=== PATIENT | female | born 1975 | race Caucasian/White ===

== ENCOUNTER 2017-05-26 13:45 | Emergency (ER) | payer OTHER ==
[~2017-05-26] VITALS: Ht 157.5 cm; Wt 62.5 kg
[~2017-05-26 13:45] MED LIST: IBUP-1542 PO; PREN1TAB49 PO
[2017-05-26 13:48] VITALS: Ht 157.5 cm; Wt 62.5 kg
[2017-05-26] MEDS ORDERED: SOD CHLORIDE 0.9% 500 ML IV ONE (16:00)
[2017-05-26] MEDS ORDERED: METOCLOPRAMIDE 10 MG INJ IV ONE (16:00)
[2017-05-26] MEDS ORDERED: DIPHENHYDRAMINE 50 MG INJ IV ONE (16:00)
[2017-05-26] MEDS ORDERED: NAPR-688 PO (16:45)
[2017-05-26] MEDS ORDERED: ORPH100T PO (16:45)
--- NOTE | 2017-05-26 16:56 | ERD ---
ER Documentation Chief Complaint Date/Time DATE: 05/26/17 TIME: 16:47 Chief Complaint Complains of a headache x 7 days HPI .. This 42-year-old female presents with a headache times a week. Headache started gradually in the back of her neck and now encompasses part of her head as well as around the eyes. She had no trauma to the area. She does get headaches from time to time that usually resolve with ibuprofen or and Tylenol. She had nausea yesterday but does not today. She also had some facial tingling. No neurological deficits otherwise. No focal weakness. This is not the worst headache of her life. ROS All systems reviewed and are negative except as per history of present illness. Medications Home Meds Active Scripts Naproxen* (Naproxen*) 500 Mg Tablet, 500 MG PO BID Y for PAIN, #20 TAB Prov:JANUARY PALACIO 05/26/17 Orphenadrine Citrate (Norflex) 100 Mg Tablet.sa, 100 MG PO BID, #20 TAB.SA Prov:HAKEEMJANUARY 05/26/17 Ibuprofen* (Motrin*) 600 Mg Tab, 600 MG PO Q6, #30 TAB Prov:GHANSHYAM MARTIN PA-C 04/27/16 Reported Medications Vits W-Ca,Fe,Fa(<1MG) () 1 Tab Tablet, 1 TAB PO 06/20/12 Allergies Allergies: Coded Allergies: No Known Allergies (Verified Allergy, 06/20/12) PMhx/Soc History of Surgery: No Anesthesia Reaction: No Hx Neurological Disorder: No Hx Respiratory Disorders: No Hx Cardiac Disorders: No Hx Psychiatric Problems: No Hx Miscellaneous Medical Probl: No Hx Alcohol Use: No Hx Substance Use: No Hx Tobacco Use: No Physical Exam Vitals Vital Signs Date Time Temp Pulse Resp B/P Pulse Ox O2 Delivery O2 Flow Rate FiO2 05/26/17 13:48 98.9 79 20 135/79 98 Physical Exam Const: [] Mild distress Head: Atraumatic Eyes: Normal Conjunctiva, EOMI, PERRLA ENT: Normal External Ears, Nose and Mouth. Neck: Full range of motion..Bilateral upper trapezius and paraspinal muscle spasm. Skin: No petechiae or rashes Ext: No cyanosis, or edema Neur: Awake and alert and ) x 3, CN II-12 Psych: Normal Mood and Affect Results 24 hrs Current Medications Medications (Trade) Dose Ordered Sig/Jalyn Route PRN Reason Start Time Stop Time Status Last Admin Dose Admin Sodium Chloride (NS) 500 ml @ 500 mls/hr Q1H ONCE IV 05/26/17 16:00 05/26/17 16:59 05/26/17 16:06 Metoclopramide HCl (Reglan) 10 mg ONCE ONCE IV 05/26/17 16:00 05/26/17 16:01 DC 05/26/17 16:06 Diphenhydramine HCl (Benadryl) 12.5 mg ONCE ONCE IV 05/26/17 16:00 05/26/17 16:01 DC 05/26/17 16:06 Procedures/MDM Acute headache that has features of a tension headache.. No neurological deficits currently. She was given a headache cocktail of 12.5 mg IV Benadryl, 10 mg of Reglan, 500 cc of IV fluid. This eliminated her headache. Admit to discharge with naproxen and Norflex for the muscle spasm in her neck. Return precautions given as well have low suspicion for subarachnoid hemorrhage because of the character of the headache and is gradual onset. PCP follow-up recommended. Departure Diagnosis: Primary Impression: Acute head injury Additional Impression: Neck muscle spasm Condition: Stable Patient Instructions: What Are Migraine and Tension Headaches? Referrals: COMM[facility]ITY CLINICS YOU HAVE RECEIVED A MEDICAL SCREENING EXAM AND THE RESULTS INDICATE THAT YOU DO NOT HAVE A CONDITION THAT REQUIRES URGENT TREATMENT IN THE EMERGENCY DEPARTMENT. FURTHER EVALUATION AND TREATMENT OF YOUR CONDITION CAN WAIT UNTIL YOU ARE SEEN IN YOUR DOCTORS OFFICE WITHIN THE NEXT 1-2 DAYS. IT IS YOUR RESPONSIBILITY TO MAKE AN APPOINTMENT FOR FOLOW-UP CARE. IF YOU HAVE A PRIMARY DOCTOR --you should call your primary doctor and schedule an appointment IF YOU DO NOT HAVE A PRIMARY DOCTOR YOU CAN CALL OUR PHYSICIAN REFERRAL HOTLINE AT IF YOU CAN NOT AFFORD TO SEE A PHYSICIAN YOU CAN CHOSE FROM THE FOLLOWING [facility] CLINICS [facility] [address] [facility] [address] [facility] [address] [facility] [address] [facility] [address] [facility]. [facility] [address] Additional Instructions: Llame al doctor MAANA y enrique diya ROCKY PARA DENTRO DE 2-3 CANDELARIA.Dgale a la secretaria que nosotros le instruimos hacer esta rocky.Avise o llame si taylor condicin se empeora antes de la rocky. Regresa aqui si peor o no mejor. JANUARY PALACIO DO May 26, 2017 16:56
== END 2017-05-26 17:15 | disposition home or self-care (01) ==
LOC: FTE 13:45
DX: S09.90XA Unspecified injury of head, initial encounter (principal); M62.838 Other muscle spasm; X58.XXXA Exposure to other specified factors, initial encounter; Y92.9 Unspecified place or not applicable
CPT/HCPCS: 96374; 96375; J1200; J2765; J7040; Z7502

== ENCOUNTER 2019-04-21 22:08 | Inpatient (IN) | payer OTHER ==
[~2019-04-21] VITALS: Ht 157.5 cm; Wt 63.1 kg
[~2019-04-21 22:08] MED LIST changes: +AMOX500C2 PO; -IBUP-1542 PO; -PREN1TAB49 PO; +SACC250C PO; +SULF1TAB31 PO; +TAMS-14 PO; +TRAM50TA2 PO
[2019-04-21] MEDS ORDERED: morphine 4 MG/ML VIAL IV STA (22:35)
[2019-04-21] MEDS ORDERED: ONDANSETRON 4 MG INJ IV STA (22:35)
[2019-04-21] MEDS ORDERED: SOD CHLORIDE 0.9% 1,000 ML IV STA (22:35)
[2019-04-21] MEDS ORDERED: KETOROLAC 15 MG INJ IV STA (22:35)
--- NOTE | 2019-04-21 22:45 | ERD ---
ER Documentation Chief Complaint Chief Complaint left flank pain x 1 hour HPI 43-year-old female who presents to the emergency room complaining of persistent left flank and left lower quadrant abdominal pain. Patient was recently ev aluated and admitted for ureterolithiasis. The patient and possible pyelonephritis though her urine culture only grew out strep. The patient noted interval mild improvement but today has worsening severe 8 out of 10 pain to the left flank and left lower quadrant. She denies any fevers or chills dysuria urgency or frequency. She does describe some mild nausea with the pain. ROS All systems reviewed and are negative except as per history of present illness. Medications Home Meds Active Scripts Amoxicillin* (Amoxicillin*) 500 Mg Cap, 500 MG PO Q8 for 7 Days, #21 CAP Prov:RUTH GONCALVES MD 04/16/19 Allergies Allergies: Coded Allergies: No Known Allergies (Verified Allergy, Unknown, 04/14/19) PMhx/Soc History of Surgery: Yes (Breast implants, tummy tuck, hernia repair) Anesthesia Reaction: No Hx Neurological Disorder: No Hx Respiratory Disorders: No Hx Cardiac Disorders: No Hx Psychiatric Problems: No Hx Miscellaneous Medical Probl: Yes (tummy tuck, hernia repair) Hx Alcohol Use: No Hx Substance Use: No Hx Tobacco Use: No Smoking Status: Never smoker FmHx Family History: No diabetes Physical Exam Vitals Vital Signs Date Temp Pulse Resp B/P (MAP) Pulse Ox O2 O2 Flow FiO2 Time Delivery Rate 04/22/19 63 15 117/68 100 Room Air 00:00 (84) 04/21/19 63 14 112/69 99 Room Air 23:30 (83) 04/21/19 60 15 128/79 100 Room Air 23:00 (95) 04/21/19 97.3 20 138/74 100 22:56 (95) 04/21/19 97.3 72 20 138/74 100 22:11 (95) Physical Exam General: Slightly uncomfortable Head: Normocephalic, atraumatic. Eyes: Pupils equally reactive, EOM intact ENT: Moist mucous membranes Neck: Supple, no lymphadenopathy Respiratory: Lungs clear bilaterally, no distress Cardiovascular: RRR, no murmurs, rubs, or gallops Abdominal: Soft, non-tender, non-distended, no peritoneal signs Back: No CVAT bilaterally : Deferred MSK: No edema, no unilateral swelling, 5/5 strength Neurologic: Alert and oriented, moving all extremities, normal speech, no focal weakness, no cerebellar signs Skin: No rash Psych: Normal mood Result Diagram: 04/21/19224304/21/192243 Results 24 hrs Laboratory Tests Test 04/21/19 22:44 04/21/19 22:50 04/21/19 22:58 White Blood Count 8.3 10^3/ul Red Blood Count 4.19 10^6/ul Hemoglobin 11.6 g/dl Hematocrit 35.9 % Mean Corpuscular Volume 85.7 fl Mean Corpuscular Hemoglobin 27.7 pg Mean Corpuscular 32.3 g/dl Hemoglobin Concent Red Cell Distribution Width 15.0 % Platelet Count 215 10^3/UL Mean Platelet Volume 9.6 fl Immature Granulocytes % 0.400 % Neutrophils % 54.0 % Lymphocytes % 35.5 % Monocytes % 8.8 % Eosinophils % 1.1 % Basophils % 0.2 % Nucleated Red Blood Cells % 0.0 /100WBC Immature Granulocytes # 0.030 10^3/ul Neutrophils # 4.5 10^3/ul Lymphocytes # 2.9 10^3/ul Monocytes # 0.7 10^3/ul Eosinophils # 0.1 10^3/ul Basophils # 0.0 10^3/ul Nucleated Red Blood Cells # 0.0 10^3/ul Prothrombin Time 13.0 Sec Prothrombin Time Ratio 1.0 INR International 0.97 Normalized Ratio Activated Partial Thromboplast 25.8 Sec Time Sodium Level 137 mmol/L Potassium Level 3.6 mmol/L Chloride Level 102 mmol/L Carbon Dioxide Level 29 mmol/L Anion Gap 6 Blood Urea Nitrogen 16 mg/dl Creatinine 0.63 mg/dl Est Glomerular Filtrat > 60 mL/min Rate mL/min Glucose Level 99 mg/dl Calcium Level 8.9 mg/dl Urine Color YELLOW Urine Clarity CLOUDY Urine pH 6.0 Urine Specific [place] 1.028 Urine Ketones TRACE mg/dL Urine Nitrite NEGATIVE mg/dL Urine Bilirubin NEGATIVE mg/dL Urine Urobilinogen NEGATIVE mg/dL Urine Leukocyte Esterase 1+ Jose/ul Urine Microscopic RBC 1 /HPF Urine Microscopic WBC 6 /HPF Urine Squamous Epithelial Cells MANY /HPF Urine Calcium Oxalate Crystals MANY /HPF Urine Mucus FEW /HPF Urine Hemoglobin NEGATIVE mg/dL Urine Glucose NEGATIVE mg/dL Urine Total Protein 1+ mg/dl POC Beta HCG, Qualitative NEGATIVE Current Medications Medications Dose Sig/Jalyn Start Time Status Last (Trade) Ordered Route PRN Stop Time Admin Dose Reason Admin Sodium 1,000 ml @ Q1H STAT 04/21/19 DC 04/21/19 Chloride 1,000 mls/hr IV 22:35 23:01 04/21/19 23:34 Morphine 4 mg ONCE STAT 04/21/19 DC 04/21/19 Sulfate IV 22:35 23:02 (morphine) 04/21/19 22:36 Ondansetron 4 mg ONCE STAT 04/21/19 DC 04/21/19 HCl (Zofran IV 22:35 23:01 Inj) 04/21/19 22:36 Ketorolac 15 mg ONCE STAT 04/21/19 DC 04/21/19 Tromethamine IV 22:35 23:01 (Toradol) 04/21/19 22:36 Ondansetron 4 mg BRIDGE ORDER 04/22/19 HCl (Zofran PRN IV 00:30 Inj) NAUSEA/VOMITI 04/23/19 00:29 NG 650 mg ER BRIDGE 04/22/19 Acetaminophen PRN PO 00:30 (Tylenol .MILD PAIN 04/23/19 00:29 Tab) 1-3 OR TEMP Amoxicillin 500 mg Q8 PO 04/22/19 06:00 (Amoxicillin) 04/24/19 05:59 Sodium 1,000 ml @ Q8H IV 04/22/19 Chloride 125 mls/hr 00:10 IV Flush 3 ml PER 04/22/19 (NS 3 ml) PROTOCOL IV 00:30 Ondansetron 4 mg Q6H PRN 04/22/19 HCl (Zofran IV 00:30 Inj) NAUSEA/VOMITI NG 650 mg Q6H PRN 04/22/19 Acetaminophen PO .PAIN 1-3 00:30 (Tylenol OR TEMP Tab) 0.5 mg Q4H PRN 04/22/19 Hydromorphone IV .SEVERE 00:30 HCl PAIN 7-10 (Dilaudid) Docusate 100 mg Q12H PRN 04/22/19 Sodium PO 00:30 (Colace) .CONSTIPATION Bisacodyl 5 mg DAILY PRN 04/22/19 (Dulcolax) PO 00:30 .CONSTIPATION Ceftriaxone 50 ml @ Q24H IVPB 04/22/19 Sodium 100 mls/hr 00:30 Procedures/MDM EKG, MONITORS, & DIAGNOSTIC IMAGING: X-ray abdomen: No acute process per radiologist read LAB INTERPRETATION: I reviewed the laboratory testing and it shows [no evidence of acute process] MEDICAL DECISION MAKING: The patient presents with persistent pain secondary to ureteral colic. It appears the patient's stone was only 3 mm however the patient has failure to pass with trial of passage as an outpatient. Do not believe the patient has an infected stone, most recent urine culture is negative. I discussed the case with Dr. Alexis, the patient's urologist who recommends admission for further evaluation, pain control and possible stent and retrieval. Patient will be n.p.o. at midnight. ER COURSE: * Patient treated with IV fluids pain medications and Toradol. * KUB ordered * Pain improving CONSULTATION: Dr. Alexis, urology contacted via [employer] around 11 PM DISPOSITION PLAN: Accepting care team and consultations: I discussed the current laboratory data, diagnostic imaging and emergency care provided. Admitting team: Dr. Montiel Admitting team indication: Insurance directed Departure Diagnosis: Primary Impression: Ureteral colic Condition: Stable TRAVON PEARSON MD Apr 21, 2019 22:45
[2019-04-22] MEDS: SOD CHLORIDE 0.9% 1,000 ML IV SCH ×4 (00:19→18:15)
[2019-04-22] MEDS: CEFTRIAXONE 1 GM/50 ML (PMX) 50 ML IVPB SCH (00:20)
[2019-04-22] MEDS ORDERED: DOCUSATE SODIUM 100 MG CAP PO PRN (00:30)
[2019-04-22] MEDS ORDERED: NACL 0.9% 3 ML SYG IV SCH (00:30)
[2019-04-22] MEDS ORDERED: ACETAMINOPHEN 325 MG TAB PO PRN ×2 (00:30)
[2019-04-22] MEDS ORDERED: ONDANSETRON 4 MG INJ IV PRN ×2 (00:30)
[2019-04-22] MEDS ORDERED: BISACODYL (EC) 5 MG TAB PO PRN (00:30)
[2019-04-22] MEDS ORDERED: HYDROmorphONE 0.5 MG/0.5 ML SYG IV PRN (00:30)
[2019-04-22 01:15] VITALS: BP 119/67; PULSE 64; RESP 16
[2019-04-22 02:08] VITALS: Ht 157.5 cm; Wt 63.1 kg
--- NOTE | 2019-04-22 03:12 | HP ---
Date/Time of Note Date/Time of Note DATE: 04/22/19 TIME: 03:04 Assessment/Plan VTE Prophylaxis SCD applied (from Nsg): Yes Pharmacological prophylaxis: NA/contraindicated Pharm contraindication: low risk/ambulating Lines/Catheters IV Catheter Type (from Nrsg): Peripheral IV Urinary Cath still in place: No Assessment/Plan Hospital Course This is a 42-year-old female being admitted to the [facility] floor for: #1 left flank pain: Possibly secondary to left-sided kidney stone. Previous CT showed a 3 mm stone in the left ureter. KUB done in the emergency department this visit did not show any evidence of stone. Nonetheless given her pain we will treat her for possible nephrolithiasis. Aggressive IV fluid hydration with normal saline. Pain management. Flomax. Strain the urine urology has already been consulted by the emergency department. #2 urinary tract infection: Ceftriaxone 1 g every 24 hours, patient had a previous urine culture positive for strep B. She was discharged on amoxicillin, will hold this at the current time given that she is on ceftriaxone. She had approximately 2 more days left on her amoxicillin course. #3 DVT GI prophylaxis: SCDs, no GI prophylaxis indicated Result Diagram: 04/21/19224304/21/194 Results 24hrs Laboratory Tests Test 04/21/19 22:44 04/21/19 22:50 04/21/19 22:58 White Blood Count 8.3 # Red Blood Count 4.19 L Hemoglobin 11.6 L Hematocrit 35.9 L Mean Corpuscular Volume 85.7 Mean Corpuscular Hemoglobin 27.7 L Mean Corpuscular Hemoglobin Concent 32.3 Red Cell Distribution Width 15.0 H Platelet Count 215 Mean Platelet Volume 9.6 Immature Granulocytes % 0.400 Neutrophils % 54.0 Lymphocytes % 35.5 Monocytes % 8.8 Eosinophils % 1.1 Basophils % 0.2 Nucleated Red Blood Cells % 0.0 Immature Granulocytes # 0.030 Neutrophils # 4.5 Lymphocytes # 2.9 Monocytes # 0.7 Eosinophils # 0.1 Basophils # 0.0 Nucleated Red Blood Cells # 0.0 Prothrombin Time 13.0 Prothrombin Time Ratio 1.0 INR International Normalized Ratio 0.97 Activated Partial Thromboplast Time 25.8 Sodium Level 137 Potassium Level 3.6 Chloride Level 102 Carbon Dioxide Level 29 Anion Gap 6 Blood Urea Nitrogen 16 Creatinine 0.63 Est Glomerular Filtrat Rate mL/min > 60 Glucose Level 99 Calcium Level 8.9 Urine Color YELLOW Urine Clarity CLOUDY A Urine pH 6.0 Urine Specific [place] 1.028 Urine Ketones TRACE A Urine Nitrite NEGATIVE Urine Bilirubin NEGATIVE Urine Urobilinogen NEGATIVE Urine Leukocyte Esterase 1+ H Urine Microscopic RBC 1 Urine Microscopic WBC 6 H Urine Squamous Epithelial Cells MANY A Urine Calcium Oxalate Crystals MANY A Urine Mucus FEW A Urine Hemoglobin NEGATIVE Urine Glucose NEGATIVE Urine Total Protein 1+ H POC Beta HCG, Qualitative NEGATIVE HPI/ROS Admit Date/Time Admit Date/Time Apr 22, 2019 at 00:08 Hx of Present Illness Complaint: Left flank pain this is a 43-year-old female who presents to the emergency room complaining of persistent left lower abdominal quadrant pain radiating to the flank. Patient was recently evaluated and admitted for ureterolithiasis. Patient also recently had a urine culture that was grew out strep agalactiae and she was given a course of amoxicillin. The patient noted interval mild improvement but today has worsening severe 8 out of 10 pain to the left flank and left lower quadrant. She denies any fevers or chills dysuria urgency or frequency. She does describe some mild nausea with the pain. Allergies: NKDA Medications: Amoxicillin 500 mg p.o. every 8 hours ROS Const: As per HPI Eyes : No pain discharge or redness or change in visual acuity ENT: No pain, sore throat, congestion, congestion, dysphagia or discharge Respiratory: No shortness of breath, cough, sputum, wheezing, or pleuritic pain Cardiovascular: No chest pain, palpitation, PND, or edema GI : no change in appetite, abdominal pain, nausea, vomiting, diarrhea, constipation, or change in the color his stool Genitourinary: As per HPI Musculoskeletal: No joint pain, back pain, neck pain, restricted range of motion in neck or joints Skin: No rash, bruising or hives Neuro: No headache, dizziness, syncope, seizure, focal weakness Endocrine: No polyuria, polydipsia, temperature intolerance Psych: No hallucination, depression, anxiety or suicidal ideation PMH/Family/Social Past Medical History Nephrolithiasis Medications Current Medications Ondansetron HCl (Zofran Inj) 4 mg BRIDGE ORDER PRN IV NAUSEA/VOMITING; Start 04/22/19 at 00:30; Stop 04/23/19 at 00:29 Acetaminophen (Tylenol Tab) 650 mg ER BRIDGE PRN PO .MILD PAIN 1-3 OR TEMP; Start 04/22/19 at 00:30; Stop 04/23/19 at 00:29 Amoxicillin (Amoxicillin) 500 mg Q8 PO ; Start 04/22/19 at 06:00; Stop 04/24/19 at 05:59 Sodium Chloride 1,000 ml @ 125 mls/hr Q8H IV Last administered on 04/22/19at 00:19; Admin Dose 125 MLS/HR; Start 04/22/19 at 00:10 IV Flush (NS 3 ml) 3 ml PER PROTOCOL IV ; Start 04/22/19 at 00:30 Ondansetron HCl (Zofran Inj) 4 mg Q6H PRN IV NAUSEA/VOMITING; Start 04/22/19 at 00:30 Acetaminophen (Tylenol Tab) 650 mg Q6H PRN PO .PAIN 1-3 OR TEMP; Start 04/22/19 at 00:30 Hydromorphone HCl (Dilaudid) 0.5 mg Q4H PRN IV .SEVERE PAIN 7-10; Start 04/22/19 at 00:30 Docusate Sodium (Colace) 100 mg Q12H PRN PO .CONSTIPATION; Start 04/22/19 at 00:30 Bisacodyl (Dulcolax) 5 mg DAILY PRN PO .CONSTIPATION; Start 04/22/19 at 00:30 Ceftriaxone Sodium 50 ml @ 100 mls/hr Q24H IVPB Last administered on 04/22/19at 00:20; Admin Dose 100 MLS/HR; Start 04/22/19 at 00:30 Coded Allergies: No Known Allergies (Verified Allergy, Unknown, 04/14/19) Past Surgical History Tummy tuck, hernia repair Past Surgical Hx: other Family History Significant Family History: no pertinent family hx Social History Alcohol Use: none Smoking Status: Never smoker Drug Use: none Exam/Review of Systems Vital Signs Vitals Vital Signs Date Temp Pulse Resp B/P (MAP) Pulse Ox O2 O2 Flow FiO2 Time Delivery Rate 04/22/19 97.6 64 16 119/67 99 Room Air 01:15 (84) Intake and Output 04/21/19 04/21/19 04/22/19 1515:00 23:00 07:00 IntakeIntake Total 1000 ml BalanceBalance 1000 ml Exam Exam General: Currently lying in bed in no acute distress HEENT: Atraumatic, normocephalic. The pupils are equal, round and reactive. Extraocular motor are intact Neck: Supple with full range of motion. No rigidity or meningismus Chest: Nontender Lungs: Clear to auscultation bilaterally no crackles rales or wheezing Heart: Normal S1-S2, Regular rhythm and rate. No murmur, S3, or S4 Abdomen: Soft mild tenderness palpation over the left flank/lower abdominal quadrant, no CVA tenderness to palpation. Normal bowel sounds. Extremities: Normal to inspection, no edema no cyanosis Neurologic: Normal mental status, speech normal, cranial nerves II through XII are intact, motor and sensory are intact, no focal weakness Additional Comments PROCEDURE: XR Abdomen. CLINICAL INDICATION: Abdominal pain. TECHNIQUE: An AP supine abdominal x-ray was obtained. . COMPARISON: ABDOMEN 04/15/2019 FINDINGS: The bowel gas pattern is normal. The fecal burden is within normal limits. There are no visible masses or abnormal calcifications. There is no gross evidence of free intraperitoneal air. There are no air-fluid levels. The osseus structures are unremarkable. IMPRESSION: 1. Unremarkable abdomen radiograph. RPTAT:AAJJ Physician Abram Date Time Electronically viewed and signed by Physician Abram on 04/21/2019 23:24 GW/ CC: TRAVON PEARSON MD [id number] PROCEDURE: CT Abdomen and Pelvis without contrast. CLINICAL INDICATION: Abdominal and pelvic pain. TECHNIQUE: CT scan of the abdomen and pelvis without contrast was performed. Coronal and sagittal reformatted images were obtained from the axial source images. Images were reviewed on a high-resolution PACS workstation. Total exam DLP is 493 mGy-cm. CTDIvol is 8 mGy. One or more of the following dose reduction techniques were used: Automated exposure control, adjustment of the mA and/or kV according to patient size, use of iterative reconstruction technique. DICOM images are available. COMPARISON: None. FINDINGS: There is bilateral lung base atelectasis versus scarring. There is no pleural effusion. There are bilateral breast prosthesis in place. The liver is normal in size and attenuation. There is no focal hepatic lesion. The gallbladder and bile ducts are normal. The spleen is normal in size. There is no focal splenic lesion. Both adrenals are normal with no enlargement or mass. The pancreas is unremarkable with no mass or evidence of pancreatitis. There is no renal mass or hydronephrosis. There is a 3 mm calcification within the proximal left ureter. The proximal left ureter is dilated measuring up to 1.8 cm with associated surrounding fat stranding. The abdominal aorta is not dilated. There is no retroperitoneal lymphadenopathy or mass. There is a 2.9 cm well circumscribed fatty lesion with associated internal soft tissue attenuation within the right lower quadrant. The bladder and distal ureters are normal. The periappendiceal region is unremarkable with no evidence of appendicitis. The bowel and mesentery are normal. There is no free fluid or free gas. There are mild degenerative changes of the spine. IMPRESSION: 1. There is a 3 mm calcification within the proximal left ureter. The proximal left ureter is dilated measuring up to 1.8 cm with associated surrounding periuretral fat stranding. 2. 2.9 cm well circumscribed fatty lesion with associated internal soft tissue attenuation within the right lower quadrant. Follow-up to exclude lipoma versus liposarcoma. RPTAT: QQ Physician Collin Date Time Electronically viewed and signed by Physician Collin on 04/14/2019 12:02 RD/ CC: LEYLA BLEVINS MD [id number] DUANE DILLARD Apr 22, 2019 03:12
[2019-04-22] MEDS ORDERED: AMOXICILLIN 500 MG CAP PO SCH (06:00)
[2019-04-22 07:15] VITALS: BP 113/68; PULSE 72; RESP 19
[2019-04-22] MEDS: TAMSULOSIN (SR) 0.4 MG CAP PO SCH ×2 (09:07→20:46)
--- NOTE | 2019-04-22 12:55 | PN ---
Date/Time of Note Date/Time of Note DATE: 04/22/19 TIME: 12:53 Assessment/Plan VTE Prophylaxis Risk score (from Nsg)>0 risk: 3 SCD applied (from Nsg): Yes Pharmacological prophylaxis: NA/contraindicated Pharm contraindication: low risk/ambulating Lines/Catheters IV Catheter Type (from Nrsg): Peripheral IV Urinary Cath still in place: No Assessment/Plan Hospital Course Assessment and plan #Left flank pain. Suspect secondary to renal stone Previous CT scan showed 3 mm stone in the left ureter KUB done at [facility] showed no evidence of stone Continue IV hydration Continues analgesics On Flomax Urologist evaluation to follow #Suspect UTI. Previous urine culture was positive for strep B Patient was previous he reported discharged on amoxicillin prior to admission and reportedly needed 2 more days to finish regimen Follow-up on urine culture Continue antibiotics for now Disposition and plan. Appears to be improving. Continue with IV fluids and analgesics as needed. Urologist evaluation pending. Discussed POC with Dr. Silva Result Diagram: 04/22/19 0417 04/22/19 0417 Results 24hrs Laboratory Tests Test 04/21/19 22:44 04/21/19 22:50 04/21/19 22:58 04/22/19 04:17 White Blood Count 8.3 # 8.1 Red Blood Count 4.19 L 4.08 L Hemoglobin 11.6 L 11.0 L Hematocrit 35.9 L 35.5 L Mean Corpuscular 85.7 87.0 Volume Mean Corpuscular 27.7 L 27.0 L Hemoglobin Mean Corpuscular 32.3 31.0 L Hemoglobin Concent Red Cell 15.0 H 15.1 H Distribution Width Platelet Count 215 220 Mean Platelet Volume 9.6 10.5 H Immature 0.400 0.200 Granulocytes % Neutrophils % 54.0 65.1 Lymphocytes % 35.5 27.0 Monocytes % 8.8 6.9 Eosinophils % 1.1 0.4 Basophils % 0.2 0.4 Nucleated Red Blood 0.0 0.0 Cells % Immature 0.030 0.020 Granulocytes # Neutrophils # 4.5 5.3 Lymphocytes # 2.9 2.2 Monocytes # 0.7 0.6 Eosinophils # 0.1 0.0 Basophils # 0.0 0.0 Nucleated Red Blood 0.0 0.0 Cells # Prothrombin Time 13.0 Prothrombin Time 1.0 Ratio INR International 0.97 Normalized Ratio Activated 25.8 Partial Thromboplast Time Sodium Level 137 142 Potassium Level 3.6 4.4 Chloride Level 102 109 Carbon Dioxide Level 29 28 Anion Gap 6 5 Blood Urea Nitrogen 16 12 Creatinine 0.63 0.50 Est Glomerular > 60 > 60 Filtrat Rate mL/min Glucose Level 99 106 Calcium Level 8.9 8.2 L Urine Color YELLOW Urine Clarity CLOUDY A Urine pH 6.0 Urine Specific 1.028 [place] Urine Ketones TRACE A Urine Nitrite NEGATIVE Urine Bilirubin NEGATIVE Urine Urobilinogen NEGATIVE Urine Leukocyte 1+ H Esterase Urine Microscopic 1 RBC Urine Microscopic 6 H WBC Urine Squamous MANY A Epithelial Cells Urine Calcium MANY A Oxalate Crystals Urine Mucus FEW A Urine Hemoglobin NEGATIVE Urine Glucose NEGATIVE Urine Total Protein 1+ H POC Beta HCG, NEGATIVE Qualitative Total Bilirubin 0.4 Direct Bilirubin 0.00 Indirect Bilirubin 0.4 Aspartate Amino 20 Transf (AST/SGOT) Alanine 22 Aminotransferase (AL T/SGPT) Alkaline Phosphatase 55 Total Protein 6.2 Albumin 3.3 Globulin 2.90 Albumin/Globulin 1.13 Ratio Subjective 24 Hr Interval Summary Free Text/Dictation Reports left flank pain is getting better. Denies dysuria Exam/Review of Systems Exam Vitals Vital Signs Date Temp Pulse Resp B/P (MAP) Pulse Ox O2 O2 Flow FiO2 Time Delivery Rate 04/22/19 98.2 72 19 113/68 98 07:15 (83) 04/22/19 Room Air 01:15 Intake and Output 04/21/19 04/21/19 04/22/19 1515:00 23:00 07:00 IntakeIntake Total 1675 ml BalanceBalance 1675 ml Constitutional: alert Psych: nl mood/affect Head: normocephalic Eyes: nl conjunctiva Respiratory: clear to auscultation, normal air movement Gastrointestinal: soft; No tender Musculoskeletal: nl extremities to inspection Neurological: SLAG MIXER II-XII intact, nl mental status, nl speech Results Results 24hrs Laboratory Tests Test 04/21/19 22:44 04/21/19 22:50 04/21/19 22:58 04/22/19 04:17 White Blood Count 8.3 # 8.1 Red Blood Count 4.19 L 4.08 L Hemoglobin 11.6 L 11.0 L Hematocrit 35.9 L 35.5 L Mean Corpuscular 85.7 87.0 Volume Mean Corpuscular 27.7 L 27.0 L Hemoglobin Mean Corpuscular 32.3 31.0 L Hemoglobin Concent Red Cell 15.0 H 15.1 H Distribution Width Platelet Count 215 220 Mean Platelet Volume 9.6 10.5 H Immature 0.400 0.200 Granulocytes % Neutrophils % 54.0 65.1 Lymphocytes % 35.5 27.0 Monocytes % 8.8 6.9 Eosinophils % 1.1 0.4 Basophils % 0.2 0.4 Nucleated Red Blood 0.0 0.0 Cells % Immature 0.030 0.020 Granulocytes # Neutrophils # 4.5 5.3 Lymphocytes # 2.9 2.2 Monocytes # 0.7 0.6 Eosinophils # 0.1 0.0 Basophils # 0.0 0.0 Nucleated Red Blood 0.0 0.0 Cells # Prothrombin Time 13.0 Prothrombin Time 1.0 Ratio INR International 0.97 Normalized Ratio Activated 25.8 Partial Thromboplast Time Sodium Level 137 142 Potassium Level 3.6 4.4 Chloride Level 102 109 Carbon Dioxide Level 29 28 Anion Gap 6 5 Blood Urea Nitrogen 16 12 Creatinine 0.63 0.50 Est Glomerular > 60 > 60 Filtrat Rate mL/min Glucose Level 99 106 Calcium Level 8.9 8.2 L Urine Color YELLOW Urine Clarity CLOUDY A Urine pH 6.0 Urine Specific 1.028 [place] Urine Ketones TRACE A Urine Nitrite NEGATIVE Urine Bilirubin NEGATIVE Urine Urobilinogen NEGATIVE Urine Leukocyte 1+ H Esterase Urine Microscopic 1 RBC Urine Microscopic 6 H WBC Urine Squamous MANY A Epithelial Cells Urine Calcium MANY A Oxalate Crystals Urine Mucus FEW A Urine Hemoglobin NEGATIVE Urine Glucose NEGATIVE Urine Total Protein 1+ H POC Beta HCG, NEGATIVE Qualitative Total Bilirubin 0.4 Direct Bilirubin 0.00 Indirect Bilirubin 0.4 Aspartate Amino 20 Transf (AST/SGOT) Alanine 22 Aminotransferase (AL T/SGPT) Alkaline Phosphatase 55 Total Protein 6.2 Albumin 3.3 Globulin 2.90 Albumin/Globulin 1.13 Ratio Medications Medication Current Medications Ondansetron HCl (Zofran Inj) 4 mg BRIDGE ORDER PRN IV NAUSEA/VOMITING; Start 04/22/19 at 00:30; Stop 04/23/19 at 00:29 Acetaminophen (Tylenol Tab) 650 mg ER BRIDGE PRN PO .MILD PAIN 1-3 OR TEMP; Start 04/22/19 at 00:30; Stop 04/23/19 at 00:29 Sodium Chloride 1,000 ml @ 125 mls/hr Q8H IV Last administered on 04/22/19at 10:55; Admin Dose 125 MLS/HR; Start 04/22/19 at 00:10 IV Flush (NS 3 ml) 3 ml PER PROTOCOL IV ; Start 04/22/19 at 00:30 Ondansetron HCl (Zofran Inj) 4 mg Q6H PRN IV NAUSEA/VOMITING; Start 04/22/19 at 00:30 Acetaminophen (Tylenol Tab) 650 mg Q6H PRN PO .PAIN 1-3 OR TEMP; Start 04/22/19 at 00:30 Hydromorphone HCl (Dilaudid) 0.5 mg Q4H PRN IV .SEVERE PAIN 7-10; Start 04/22/19 at 00:30 Docusate Sodium (Colace) 100 mg Q12H PRN PO .CONSTIPATION; Start 04/22/19 at 00:30 Bisacodyl (Dulcolax) 5 mg DAILY PRN PO .CONSTIPATION; Start 04/22/19 at 00:30 Ceftriaxone Sodium 50 ml @ 100 mls/hr Q24H IVPB Last administered on 04/22/19at 00:20; Admin Dose 100 MLS/HR; Start 04/22/19 at 00:30 Tamsulosin HCl (Flomax) 0.4 mg BID PO Last administered on 04/22/19at 09:07; Admin Dose 0.4 MG; Start 04/22/19 at 09:00 KAYA ABAD NP Apr 22, 2019 12:55
--- NOTE | 2019-04-22 13:37 | CONS ---
Assessment/Plan Assessment/Plan Hospital Course (Demo Recall) 43-year-old female known to have a 3 mm stone in the left ureter. She was sent home last week with the hope that she will pass a stone at home. She returned to the emergency room with recurrent left flank pain. She was admitted for pain management. Patient still has pain in the left flank area and left lower quadrant. She does have left lower quadrant pain after she voids. The KUB did not show any radiopaque stone but that does not mean the stone is not there as it may be obs cured by the bowel content. Plan is to continue her pain management, strain the urine and repeated a KUB in a.m. If no pain that requires intravenous pain management then she could go home on oral pain medications and continue to strain her urine at home. I again explained to her that a 3 mm stone she should be able to pass it on her own and that she is not going to pass it without having some pain. Consultation Date/Type/Reason Admit Date/Time Apr 22, 2019 at 00:08 Date of Consultation: Apr 22, 2019 Type of Consult Urology Reason for Consultation Left ureteral stone Requesting Provider: DUANE DILLARD Date/Time of Note DATE: 04/22/19 TIME: 13:24 Hx of Present Illness 43-year-old female known to have a 3 mm stone in the left ureter. She was sent home last week with the hope that she will pass a stone at home. She returned to the emergency room with recurrent left flank pain. She was admitted for pain management. Constitutional: no complaints Eyes: no complaints ENT: no complaints Respiratory: no complaints; No shortness of breath Cardiovascular: no complaints Gastrointestinal: no complaints Genitourinary: flank pain Musculoskeletal: no complaints Skin: no complaints Neurologic: no complaints Endocrine: no complaints Lymphatic: no complaints Psychological: no complaints Immunologic: no complaints Past Medical History Medical History: other Home Meds Active Scripts Amoxicillin* (Amoxicillin*) 500 Mg Cap, 500 MG PO Q8 for 7 Days, #21 CAP Prov:RUTH GONCALVES MD 04/16/19 Medications Current Medications Ondansetron HCl (Zofran Inj) 4 mg BRIDGE ORDER PRN IV NAUSEA/VOMITING; Start 04/22/19 at 00:30; Stop 04/23/19 at 00:29 Acetaminophen (Tylenol Tab) 650 mg ER BRIDGE PRN PO .MILD PAIN 1-3 OR TEMP; Start 04/22/19 at 00:30; Stop 04/23/19 at 00:29 Sodium Chloride 1,000 ml @ 125 mls/hr Q8H IV Last administered on 04/22/19at 10:55; Admin Dose 125 MLS/HR; Start 04/22/19 at 00:10 IV Flush (NS 3 ml) 3 ml PER PROTOCOL IV ; Start 04/22/19 at 00:30 Ondansetron HCl (Zofran Inj) 4 mg Q6H PRN IV NAUSEA/VOMITING; Start 04/22/19 at 00:30 Acetaminophen (Tylenol Tab) 650 mg Q6H PRN PO .PAIN 1-3 OR TEMP; Start 04/22/19 at 00:30 Hydromorphone HCl (Dilaudid) 0.5 mg Q4H PRN IV .SEVERE PAIN 7-10; Start 04/22/19 at 00:30 Docusate Sodium (Colace) 100 mg Q12H PRN PO .CONSTIPATION; Start 04/22/19 at 00:30 Bisacodyl (Dulcolax) 5 mg DAILY PRN PO .CONSTIPATION; Start 04/22/19 at 00:30 Ceftriaxone Sodium 50 ml @ 100 mls/hr Q24H IVPB Last administered on 04/22/19at 00:20; Admin Dose 100 MLS/HR; Start 04/22/19 at 00:30 Tamsulosin HCl (Flomax) 0.4 mg BID PO Last administered on 04/22/19at 09:07; Admin Dose 0.4 MG; Start 04/22/19 at 09:00 Allergies: Coded Allergies: No Known Allergies (Verified Allergy, Unknown, 04/14/19) Past Surgical History Past Surgical Hx: other (Eyelid surgery, bilateral breast implants, tummy tuck and hernia repair) Social History Alcohol Use: none Smoking Status: Never smoker Drug Use: none Exam/Review of Systems Exam Vitals Vital Signs Date Temp Pulse Resp B/P (MAP) Pulse Ox O2 O2 Flow FiO2 Time Delivery Rate 04/22/19 98.2 72 19 113/68 98 07:15 (83) 04/22/19 Room Air 01:15 Intake and Output 04/21/19 04/21/19 04/22/19 1515:00 23:00 07:00 IntakeIntake Total 1675 ml BalanceBalance 1675 ml Constitutional: alert Psych: no complaints Head: normocephalic Eyes: nl conjunctiva Neck: supple Respiratory: normal air movement; No wheezing Cardiovascular: No jugular venous distention (JVD) Gastrointestinal: soft, tender (Left lower quadrant) Genitourinary - Female: CVA tenderness (Left side) Musculoskeletal: nl extremities to inspection Extremities: No calf tenderness Neurological: nl mental status Results Result Diagram: 04/22/1941604/22/19416 Results 24hrs Laboratory Tests Test 04/21/19 22:44 04/21/19 22:50 04/21/19 22:58 04/22/19 04:17 White Blood Count 8.3 # 8.1 Red Blood Count 4.19 L 4.08 L Hemoglobin 11.6 L 11.0 L Hematocrit 35.9 L 35.5 L Mean Corpuscular 85.7 87.0 Volume Mean Corpuscular 27.7 L 27.0 L Hemoglobin Mean Corpuscular 32.3 31.0 L Hemoglobin Concent Red Cell 15.0 H 15.1 H Distribution Width Platelet Count 215 220 Mean Platelet Volume 9.6 10.5 H Immature 0.400 0.200 Granulocytes % Neutrophils % 54.0 65.1 Lymphocytes % 35.5 27.0 Monocytes % 8.8 6.9 Eosinophils % 1.1 0.4 Basophils % 0.2 0.4 Nucleated Red Blood 0.0 0.0 Cells % Immature 0.030 0.020 Granulocytes # Neutrophils # 4.5 5.3 Lymphocytes # 2.9 2.2 Monocytes # 0.7 0.6 Eosinophils # 0.1 0.0 Basophils # 0.0 0.0 Nucleated Red Blood 0.0 0.0 Cells # Prothrombin Time 13.0 Prothrombin Time 1.0 Ratio INR International 0.97 Normalized Ratio Activated 25.8 Partial Thromboplast Time Sodium Level 137 142 Potassium Level 3.6 4.4 Chloride Level 102 109 Carbon Dioxide Level 29 28 Anion Gap 6 5 Blood Urea Nitrogen 16 12 Creatinine 0.63 0.50 Est Glomerular > 60 > 60 Filtrat Rate mL/min Glucose Level 99 106 Calcium Level 8.9 8.2 L Urine Color YELLOW Urine Clarity CLOUDY A Urine pH 6.0 Urine Specific 1.028 [place] Urine Ketones TRACE A Urine Nitrite NEGATIVE Urine Bilirubin NEGATIVE Urine Urobilinogen NEGATIVE Urine Leukocyte 1+ H Esterase Urine Microscopic 1 RBC Urine Microscopic 6 H WBC Urine Squamous MANY A Epithelial Cells Urine Calcium MANY A Oxalate Crystals Urine Mucus FEW A Urine Hemoglobin NEGATIVE Urine Glucose NEGATIVE Urine Total Protein 1+ H POC Beta HCG, NEGATIVE Qualitative Total Bilirubin 0.4 Direct Bilirubin 0.00 Indirect Bilirubin 0.4 Aspartate Amino 20 Transf (AST/SGOT) Alanine 22 Aminotransferase (AL T/SGPT) Alkaline Phosphatase 55 Total Protein 6.2 Albumin 3.3 Globulin 2.90 Albumin/Globulin 1.13 Ratio Medications Medication Current Medications Ondansetron HCl (Zofran Inj) 4 mg BRIDGE ORDER PRN IV NAUSEA/VOMITING; Start 04/22/19 at 00:30; Stop 04/23/19 at 00:29 Acetaminophen (Tylenol Tab) 650 mg ER BRIDGE PRN PO .MILD PAIN 1-3 OR TEMP; Start 04/22/19 at 00:30; Stop 04/23/19 at 00:29 Sodium Chloride 1,000 ml @ 125 mls/hr Q8H IV Last administered on 04/22/19at 10:55; Admin Dose 125 MLS/HR; Start 04/22/19 at 00:10 IV Flush (NS 3 ml) 3 ml PER PROTOCOL IV ; Start 04/22/19 at 00:30 Ondansetron HCl (Zofran Inj) 4 mg Q6H PRN IV NAUSEA/VOMITING; Start 04/22/19 at 00:30 Acetaminophen (Tylenol Tab) 650 mg Q6H PRN PO .PAIN 1-3 OR TEMP; Start 04/22/19 at 00:30 Hydromorphone HCl (Dilaudid) 0.5 mg Q4H PRN IV .SEVERE PAIN 7-10; Start 04/22/19 at 00:30 Docusate Sodium (Colace) 100 mg Q12H PRN PO .CONSTIPATION; Start 04/22/19 at 00:30 Bisacodyl (Dulcolax) 5 mg DAILY PRN PO .CONSTIPATION; Start 04/22/19 at 00:30 Ceftriaxone Sodium 50 ml @ 100 mls/hr Q24H IVPB Last administered on 04/22/19at 00:20; Admin Dose 100 MLS/HR; Start 04/22/19 at 00:30 Tamsulosin HCl (Flomax) 0.4 mg BID PO Last administered on 04/22/19at 09:07; Admin Dose 0.4 MG; Start 04/22/19 at 09:00 PRATIMA COLVIN MD Apr 22, 2019 13:35
[2019-04-22 15:02] VITALS: BP 111/62; PULSE 78; RESP 20
[2019-04-22 20:18] VITALS: BP 116/70; PULSE 54; RESP 16
[2019-04-23] MEDS: CEFTRIAXONE 1 GM/50 ML (PMX) 50 ML IVPB SCH (00:13)
[2019-04-23 02:30] VITALS: BP 109/64; PULSE 61; RESP 18
[2019-04-23] MEDS: SOD CHLORIDE 0.9% 1,000 ML IV SCH (03:11)
[2019-04-23 07:38] VITALS: BP 115/62; PULSE 72; RESP 19
--- NOTE | 2019-04-23 08:35 | CONS ---
Consult Date/Type/Reason Admit Date/Time Apr 22, 2019 at 00:08 Initial Consult Date 04/22/19 Type of Consultation: Urology Reason for Consultation Left ureteral stone Requesting Provider: DUANE DILLARD Date/Time of Note DATE: 04/23/19 TIME: 08:32 Subjective Patient is feeling better. Last time she had pain was over 12 hours earlier. She denies any dysuria. No nausea or vomiting Objective Vitals Vital Signs Date Temp Pulse Resp B/P (MAP) Pulse Ox O2 O2 Flow FiO2 Time Delivery Rate 04/23/19 98.2 72 19 115/62 98 07:38 (79) 04/22/19 Room Air 01:15 Intake and Output 04/22/19 04/22/19 04/23/19 1515:00 23:00 07:00 IntakeIntake Total 325 ml 1620 ml 1500 ml OutputOutput Total 500 ml BalanceBalance 325 ml 1620 ml 1000 ml Exam Abdomen is soft and there is no flank tenderness. Results/Medications Result Diagram: 04/23/19 0444 04/23/19 0444 Results 24 hrs Laboratory Tests Test 04/23/19 04:44 White Blood Count 6.1 # Red Blood Count 3.66 L Hemoglobin 10.1 L Hematocrit 31.9 L Mean Corpuscular Volume 87.2 Mean Corpuscular Hemoglobin 27.6 L Mean Corpuscular Hemoglobin Concent 31.7 L Red Cell Distribution Width 15.1 H Platelet Count 198 Mean Platelet Volume 10.4 Immature Granulocytes % 0.300 Neutrophils % 51.3 Lymphocytes % 39.4 Monocytes % 8.1 Eosinophils % 0.7 Basophils % 0.2 Nucleated Red Blood Cells % 0.0 Immature Granulocytes # 0.020 Neutrophils # 3.1 Lymphocytes # 2.4 Monocytes # 0.5 Eosinophils # 0.0 Basophils # 0.0 Nucleated Red Blood Cells # 0.0 Sodium Level 139 Potassium Level 4.0 Chloride Level 108 Carbon Dioxide Level 27 Anion Gap 4 L Blood Urea Nitrogen 7 Creatinine 0.54 Est Glomerular Filtrat Rate mL/min > 60 Glucose Level 95 Calcium Level 8.1 L Total Bilirubin 0.4 Direct Bilirubin 0.00 Indirect Bilirubin 0.4 Aspartate Amino Transf (AST/SGOT) 15 Alanine Aminotransferase (ALT/SGPT) 29 Alkaline Phosphatase 44 Total Protein 5.6 L Albumin 2.9 L Globulin 2.70 Albumin/Globulin Ratio 1.07 Home Meds Active Scripts Amoxicillin* (Amoxicillin*) 500 Mg Cap, 500 MG PO Q8 for 7 Days, #21 CAP Prov:RUTH GONCALVES MD 04/16/19 Medications Current Medications Sodium Chloride 1,000 ml @ 125 mls/hr Q8H IV Last administered on 04/23/19at 03:11; Admin Dose 125 MLS/HR; Start 04/22/19 at 00:10 IV Flush (NS 3 ml) 3 ml PER PROTOCOL IV ; Start 04/22/19 at 00:30 Ondansetron HCl (Zofran Inj) 4 mg Q6H PRN IV NAUSEA/VOMITING; Start 04/22/19 at 00:30 Acetaminophen (Tylenol Tab) 650 mg Q6H PRN PO .PAIN 1-3 OR TEMP; Start 04/22/19 at 00:30 Hydromorphone HCl (Dilaudid) 0.5 mg Q4H PRN IV .SEVERE PAIN 7-10 Last administered on 04/22/19at 18:15; Admin Dose 0.5 MG; Start 04/22/19 at 00:30 Docusate Sodium (Colace) 100 mg Q12H PRN PO .CONSTIPATION; Start 04/22/19 at 00:30 Bisacodyl (Dulcolax) 5 mg DAILY PRN PO .CONSTIPATION; Start 04/22/19 at 00:30 Ceftriaxone Sodium 50 ml @ 100 mls/hr Q24H IVPB Last administered on 04/23/19at 00:13; Admin Dose 100 MLS/HR; Start 04/22/19 at 00:30 Tamsulosin HCl (Flomax) 0.4 mg BID PO Last administered on 04/22/19at 20:46; Admin Dose 0.4 MG; Start 04/22/19 at 09:00 Assessment/Plan Hospital Course (Demo Recall) 43-year-old female known to have a 3 mm stone in the left ureter. She was sent home last week with the hope that she will pass a stone at home. She returned to the emergency room with recurrent left flank pain. She was admitted for pain management. Patient is comfortable this morning. Last time she had pain was about 12 hours earlier. She has no flank tenderness and her abdomen is soft. Since the stone is small and measures about 3 mm the patient should be able to pass it. She may be discharged home with oral pain medications and tamsulosin and follow-up as an outpatient. She should continue to strain her urine at home. PRATIMA COLVIN MD Apr 23, 2019 08:35
[2019-04-23] MEDS: TAMSULOSIN (SR) 0.4 MG CAP PO SCH (09:41)
--- NOTE | 2019-04-23 12:22 | PDOCDIS ---
Discharge Instructions DIAGNOSIS Discharge Diagnosis #Left flank pain. Suspect secondary to renal stone #Suspect UTI. CONDITION [id number] Patient Condition: [id number] Stable HOME CARE INSTRUCTIONS: [id number] Diet Instructions: Oilru0m Low Fat /Cholesterol FOLLOW UP/APPOINTMENTS Follow-up Plan Follow up with Dr. Cy Alexis in one week Office Address [id number] [address] Office KAYA ABAD NP Apr 23, 2019 12:22
--- NOTE | 2019-04-23 13:40 | DS ---
Date/Time of Note Date/Time of Note DATE: 04/23/19 TIME: 13:39 Discharge Summary Admission/Discharge Info Admit Date/Time Apr 22, 2019 at 00:08 Discharge Date/Time Discharge Diagnosis #Left flank pain. Suspect secondary to renal stone #Suspect UTI. Patient Condition: Stable Hospital Course This is a 43-year-old female who came to the hospital due to left lower abdominal pain radiating to the flank. She was evaluated outside hospital and was found to have urolithiasis ureterolithiasis. She also had UTI with strep and was given amoxicillin as outpatient. While in house she was seen by urologist. We also provided her with IV fluids and analgesics. For her UTI she was placed on antibiotic. During her stay she did improve. She did report resolution of pain. We did give her antibiotics per urologist recommendations. She was also advised outpatient follow-up. She was also prescribed Flomax. Plan of care was discussed the patient and she verbalized understanding. On the day of discharge patient was in stable condition Discussed POC with Dr. Silva [facility] Active Scripts Saccharomyces Boulardii* (Florastor*) 250 Mg Cap, 500 MG PO BID, #10 CAP Prov:KAYA ABAD [employer] 04/23/19 Sulfamethoxazole/Trimethoprim* (Bactrim Ds* Tablet) 1 Each Tablet, 1 TAB PO BID, #10 TAB Prov:KAYA ABAD [employer] 04/23/19 Tramadol HCl (Tramadol HCl) 50 Mg Tablet, 50 MG PO Q6H PRN for PAIN, #10 TAB Prov:KAYA ABAD [employer] 04/23/19 Tamsulosin Hcl* (Flomax*) 0.4 Mg Cap.er.24h, 0.4 MG PO BID, #28 CAP Prov:KAYA ABAD [employer] 04/23/19 Discontinued Scripts Amoxicillin* (Amoxicillin*) 500 Mg Cap, 500 MG PO Q8 for 7 Days, #21 CAP Prov:RUTH GONCALVES MD 04/16/19 Follow-up Plan Follow up with Dr. Cy Alexis in one week Office Address [id number] [address] Office Primary Care Provider [facility] Time spent on discharge: > 30 minutes Pending Labs Laboratory Tests Test 7/30/19 04:44 White Blood Count 6.1 10^3/ul (4.8-10.8) Red Blood Count 3.66 10^6/ul (4.20-5.40) Hemoglobin 10.1 g/dl (12.0-16.0) Hematocrit 31.9 % (37.0-47.0) Mean Corpuscular Volume 87.2 fl (82.0-101.0) Mean Corpuscular Hemoglobin 27.6 pg (29.0-33.0) Mean Corpuscular Hemoglobin Concent 31.7 g/dl (32.0-37.0) Red Cell Distribution Width 15.1 % (11.5-14.5) Platelet Count 198 10^3/UL (140-415) Mean Platelet Volume 10.4 fl (7.4-10.4) Immature Granulocytes % 0.300 % (0.001-0.429) Neutrophils % 51.3 % (39.0-77.0) Lymphocytes % 39.4 % (15.0-51.0) Monocytes % 8.1 % (0.0-11.0) Eosinophils % 0.7 % (0.0-7.0) Basophils % 0.2 % (0.0-2.0) Nucleated Red Blood Cells % 0.0 /100WBC (0.0-0.0) Immature Granulocytes # 0.020 10^3/ul (0.0-0.031) Neutrophils # 3.1 10^3/ul (1.6-7.5) Lymphocytes # 2.4 10^3/ul (0.8-2.9) Monocytes # 0.5 10^3/ul (0.3-0.9) Eosinophils # 0.0 10^3/ul (0.0-0.5) Basophils # 0.0 10^3/ul (0.0-0.1) Nucleated Red Blood Cells # 0.0 10^3/ul (0.0-0.0) Sodium Level 139 mmol/L (135-144) Potassium Level 4.0 mmol/L (3.5-5.1) Chloride Level 108 mmol/L (97-110) Carbon Dioxide Level 27 mmol/L (21-31) Anion Gap 4 (5-13) Blood Urea Nitrogen 7 mg/dl (7-20) Creatinine 0.54 mg/dl (0.44-1.00) Est Glomerular Filtrat Rate mL/min > 60 mL/min (>60) Glucose Level 95 mg/dl (70-220) Calcium Level 8.1 mg/dl (8.4-10.2) Total Bilirubin 0.4 mg/dl (0.2-1.3) Direct Bilirubin 0.00 mg/dl (0.00-0.20) Indirect Bilirubin 0.4 mg/dl (0-1.1) Aspartate Amino Transf (AST/SGOT) 15 IU/L (15-46) Alanine Aminotransferase (ALT/SGPT) 29 IU/L (13-69) Alkaline Phosphatase 44 IU/L (42-121) Total Protein 5.6 g/dl (6.1-8.1) Albumin 2.9 g/dl (3.3-4.9) Globulin 2.70 g/dl (1.3-3.2) Albumin/Globulin Ratio 1.07 KAYA ABAD NP Apr 23, 2019 13:40
[2019-04-23 14:21] VITALS: BP 112/64; PULSE 68; RESP 20
== END 2019-04-23 16:35 | disposition home or self-care (01) | DRG 694 ==
LOC: E/R 22:08 → MS1 04-22 00:08
PROVIDERS: ADMIT Family Medicine; ATTEND Family Medicine
DX: N20.0 Calculus of kidney (principal); N39.0 Urinary tract infection, site not specified; B95.1 Streptococcus, group B, as the cause of diseases classified elsewhere
CPT/HCPCS: 36415; 74018; 80048; 80053; 81001; 81025; 85025; 85610; 85730; 87081; 87086; 96361; 96374; 96375; J0696; J1170; J1885; J2270; J2405; J7030